=== PATIENT | female | born 1965 | race Caucasian/White ===

== ENCOUNTER 2024-06-02 13:18 | Outpatient (CLI) | payer MEDICAID ==
[2024-06-02 18:39] LABS: BASOPHILS # (AUTO) 0.1 10^3/uL (0.0-0.1); BASOPHILS % (AUTO) 0.7 %; EOSINOPHILS # (AUTO) 0.3 10^3/uL (0.0-0.7); EOSINOPHILS % (AUTO) 3.3 %; HGB - HEMOGLOBIN 13.6 g/dL (12.0-16.0); LYMPHOCYTES # (AUTO) 4.2 10^3/uL (1.5-3.5); LYMPHOCYTES % (AUTO) 41.3 %; MEAN CORPUSCULAR HEMOGLOBIN 31.6 pg (27.0-31.0); MEAN CORPUSCULAR HGB CONC 31.6 g/dL (32.0-36.0); MEAN PLATELET VOLUME 10.2 fL (7.9-10.8); MONOCYTES # (AUTO) 0.6 10^3/uL (0.0-1.0); MONOCYTES % (AUTO) 5.4 %; PLT - PLATELET COUNT 320 10^3/uL (130-450); RED CELL DISTRIBUTION WIDTH 13.7 % (12.0-15.0); WHITE BLOOD COUNT 10.2 x10^3/uL (4.8-10.8)
[2024-06-02 18:53] LABS: ALBUMIN/GLOBULIN RATIO 1.2 (1.0-2.2); ALKALINE PHOSPHATASE 51 IU/L (42-121); ALT ALANINE AMINOTRANSFERASE 21 IU/L (10-60); AST ASPARTATE AMINOTRANSFERASE 17 IU/L (10-42); BILIRUBIN,TOTAL 0.3 mg/dL (0.2-1.0); BUN - BLOOD UREA NITROGEN 16 mg/dL (6-20); CALCIUM 9.9 mg/dL (8.5-10.3); CARBON DIOXIDE - CO2 31 mmol/L (21-32); CHLORIDE 104 mmol/L (101-111); CHOL/HDL RATIO 2.5 (<4.4); CHOLESTEROL 149 mg/dL; CREATININE 0.8 mg/dL (0.6-1.3); GFR - MDRD 73 (>89); GLUCOSE 105 mg/dL (74-104); HDL CHOLESTEROL 60 mg/dL; LDL CHOLESTEROL,CALCULATED 69 mg/dL; LDL/HDL RATIO 1.2 (<4.4); POTASSIUM 4.2 mmol/L (3.5-4.5); SODIUM 139 mmol/L (135-145); TOTAL PROTEIN 7.4 g/dL (6.4-8.9); TRIGLYCERIDES 100 mg/dL; VLDL CHOLESTEROL 20 mg/dL
[2024-06-02 19:10] LABS: THYROID STIMULATING HORMONE 3.17 uIU/mL (0.34-5.60)
[2024-06-02 21:21] LABS: ESTIMATED AVERAGE GLUCOSE 111 mg/dL (70-100); HEMOGLOBIN A1c% 5.5 % (4.27-6.07)
--- NOTE | 2024-06-05 15:28 | XRAY Report ---
PROCEDURE: Knee 3V RT INDICATIONS: KNEE PAIN TECHNIQUE: 3 views of the knee(s) were acquired. COMPARISON: None. FINDINGS: Bones: No fractures or dislocations. No suspicious bony lesions. Tricompartmental arthritic quijano es are present most severe laterally. Periarticular osteophytes are present. No distinct erosions. Soft tissues: No knee joint effusion. No suspicious soft tissue calcifications or masses. IMPRESSION: Moderate to severe tricompartmental arthritic changes as above. Reviewed by: Christie Walker MD on 06/05/2024 3:26 PM PDT Approved by: Christie Walker MD on 06/05/2024 3:26 PM PDT Station ID: [id number]
== END 2024-06-02 13:19 | disposition home or self-care (01) ==
LOC: DI.N 13:18
DX: Z00.00 Encounter for general adult medical examination without abnormal findings (principal); I50.22 Chronic systolic (congestive) heart failure; M17.11 Unilateral primary osteoarthritis, right knee; Z13.1 Encounter for screening for diabetes mellitus
CPT/HCPCS: 36415; 80050; 80061; 83036; 83721